=== PATIENT | male | born 1985 | race Caucasian/White ===

== ENCOUNTER 2023-03-10 09:38 | Emergency (ER) | payer MEDICARE, MEDICAID ==
[2023-03-10] MEDS ORDERED: Ondansetron 4 MG/2 ML SDV IVPUSH ONE (09:57)
[2023-03-10] MEDS ORDERED: Sodium Chloride 0.9% 1,000 ML IV SCH (10:00)
[2023-03-10 10:03] LABS: BASOPHILS ABSOLUTE AUTO 0.1 x10^3/uL (0.0-0.2); BASOPHILS PERCENT AUTO 0.7 % (0.2-1.2); EOSINOPHILS ABSOLUTE AUTO 0.3 x10^3/uL (0.0-0.5); EOSINOPHILS PERCENT AUTO 3.2 % (0.0-4.0); HEMATOCRIT 48.5 % (40.0-52.0); HEMOGLOBIN 15.9 g/dL (14.0-18.0); IMMATURE GRAN ABSOLUTE AUTO 0.04 x10^3/uL (0.00-0.07); LYMPHOCYTES ABSOLUTE AUTO 1.7 x10^3/uL (1.0-4.8); LYMPHOCYTES PERCENT AUTO 16.1 % (25.0-50.0); MEAN CORPUSCULAR HEMOGLOBIN 27.7 pg (26.0-32.0); MEAN CORPUSCULAR HGB CONC 32.8 g/dL (32.0-36.0); MEAN CORPUSCULAR VOLUME 84.5 fL (78.0-93.0); MONOCYTES ABSOLUTE AUTO 0.8 x10^3/uL (0.0-0.8); MONOCYTES PERCENT AUTO 7.5 % (2.0-11.0); NEUTROPHILS ABSOLUTE AUTO 7.6 x10^3/uL (1.8-7.7); NEUTROPHILS PERCENT AUTO 72.1 % (50.0-80.0); PLATELET COUNT,PLT 188 x10^3/uL (130-400); RED BLOOD CELL COUNT 5.74 x10^6/uL (4.5-6.0); WHITE BLOOD CELL COUNT,WBC 10.5 x10^3/uL (4.0-10.0)
[2023-03-10 10:18] LABS: A/G RATIO 1.14; ALBUMIN 4.1 g/dL (3.4-5.0); BILIRUBIN TOTAL 0.5 mg/dL (0.2-1.0); CALCIUM 9.3 mg/dL (8.5-10.1); CREATININE 0.9 mg/dL (0.70-1.30); EST CRCL DRUG DOSING (CG) 128.23 mL/min; POTASSIUM,K 4.1 mmol/L (3.5-5.1); PROTEIN TOTAL,TP 7.7 g/dL (6.4-8.2)
[2023-03-10 10:19] LABS: ANION GAP 15.1 mmol/L (5-15)
[2023-03-10] MEDS ORDERED: dimenhyDRINATE 50 MG Tab PO ONE (10:28)
[2023-03-10] MEDS ORDERED: Sodium Chloride 0.9% 10 ML Syringe FLUSH PRN (11:41)
[2023-03-10 11:58] LABS: PROTHROMBIN TIME 11.1 SEC (9.5-12.2); PTT,PARTIAL THROMBOPLSTIN TIME 27.9 SEC (23.6-33.6)
[2023-03-10 12:10] LABS: ETHANOL BLOOD MEDICAL < 3 mg/dL (0-3); MAGNESIUM 1.6 mg/dL (1.8-2.4); TSH ULTRASENSITIVE 2.863 uIU/mL (0.358-3.74)
[2023-03-10 12:20] LABS: AMPHETAMINES SCREEN, URINE NEGATIVE (NEGATIVE); BARBITURATE SCREEN,URINE NEGATIVE (NEGATIVE); BENZODIAZEPINES SCREEN,URINE POSITIVE (NEGATIVE); BUPRENORPHINE SCREEN,URINE NEGATIVE (NEGATIVE); COCAINE METABOLITES,URINE NEGATIVE (NEGATIVE); METHADONE SCREEN, URINE NEGATIVE (NEGATIVE); METHAMPHETAMINE SCREEN, URINE NEGATIVE (NEGATIVE); OXYCODONE SCREEN,URINE POSITIVE (NEGATIVE); PCP SCREEN,URINE NEGATIVE (NEGATIVE); THC SCREEN,URINE 50 NG/ML NEGATIVE (NEGATIVE)
[2023-03-10] MEDS ORDERED: diphenhydrAMINE 50 MG/ML SDV IVPUSH ONE (13:33)
== END 2023-03-10 14:30 | disposition home or self-care (01) ==
LOC: MERGE 09:38 → VM.ED 09:38
DX: R42 Dizziness and giddiness (principal); Z88.0 Allergy status to penicillin
CPT/HCPCS: 70450; 80053; 80305-QW; 80307; 83735; 84443; 84484; 85025; 85610; 85730; 93005; 93010; 96374; 96375; 96376; 99284; 99284-25; A9270-GY; J1200; J2405; J3360